=== PATIENT | male | born 1955 | race Caucasian/White ===

== ENCOUNTER → 2017-05-26 | Outpatient (CLI) | payer OTHER ==
--- NOTE | 2017-05-31 12:24 | SLEEPCENT ---
DATE OF STUDY: 05/26/2017 ORDERED BY: Kristie Gamez Diagnostic nocturnal polysomnography was performed due to concern for the obstructive sleep apnea syndrome in this patient with history of coronary artery disease and excessive somnolence. 7 hours and 39 minutes of data were reviewed. There were 348 minutes of sleep identified. Sleep latency was normal at 8 minutes. Rapid eye movement (REM) latency was delayed at 170 minutes. Sleep architecture showed fragmentation. There were 2 REM periods appreciated. Overall sleep efficiency was 76.8%. The patient's electrocardiogram (EKG) showed a sinus rhythm with an average heart rate of 72 beats per minute. Electroencephalogram (EEG) showed reasonably normal waveforms for awake and sleep. There were 212 respiratory events identified of 10 seconds in duration or greater for an apnea-hypopnea index of 36.5. The events were primarily obstructive, but 84 central events were also seen. The respiratory events were not exclusive to sleep stage nor body posture. Arousals from respiratory events occurred 10.5 times per hour and oxygen desaturations were seen into the 70s. There was also some limb activity, but arousals from limb events were few. IMPRESSION: Severe obstructive sleep apnea (G47.33), apnea-hypopnea index 36.5. RECOMMENDATION: The patient should be encouraged to return to the sleep disorder center for pressure therapy. In the interim, alcohol and sedative avoidance should be practiced and caution exercised during the operation of motor vehicles.
== END ==
LOC: M SLEEP 19:26
PROVIDERS: ATTEND Nurse Practitioner Adult Health
DX: G47.33 Obstructive sleep apnea (adult) (pediatric) (principal)

== ENCOUNTER → 2017-07-10 | Outpatient (CLI) | payer OTHER ==
--- NOTE | 2017-07-14 11:33 | SLEEPCENT ---
DATE OF PROCEDURE: 07/10/2017 REQUESTING PROVIDER: Kristie Gamez NP INTERPRETATION: Nocturnal polysomnography was performed for the titration of pressure therapy in this patient with severe obstructive sleep apnea syndrome, apnea-hypopnea index of 36.5. For testing, a ResMed Air Fit F30 full face mask of large size was used, 4 cm of water pressure was applied to the circuit and the lights were extinguished. 8 hours and 20 minutes of data were reviewed. There were 458 minutes of sleep identified. Sleep latency was prolonged at 17 minutes. Rapid eye movement (REM) latency was short at 59 minutes. Sleep architecture was good with five REM periods appreciated. Overall sleep efficiency was 93%. The patient's electrocardiogram (EKG) showed a sinus rhythm with an average heart rate of 63 beats per minute. Electroencephalogram (EEG) showed reasonably normal waveforms for awake and sleep. Persistence of respiratory events prompted an increase in continuous positive airway pressure (CPAP) pressure from 4 to the optimal pressure of +10, with which the patient slept through REM without respiratory event or oxygen desaturations. Limb activity was again seen during the titration night. Arousal index remained at the upper limits of normal at 5.4. IMPRESSION: 1. Obstructive sleep apnea syndrome (G47.33). RECOMMENDATIONS: Nightly use of pressure therapy at 10 cm of water.
== END ==
LOC: M SLEEP 19:27
PROVIDERS: ATTEND Nurse Practitioner Adult Health
DX: G47.33 Obstructive sleep apnea (adult) (pediatric) (principal)

== ENCOUNTER → 2018-11-30 | Outpatient (REF) | payer OTHER ==
[2018-11-30 14:28] LABS: COMPLEMENT C3 142 MG/DL (90-180); COMPLEMENT C4 36 MG/DL (10-40)
[2018-12-02 13:25] LABS: UPEP INTERPRETATION NO M-SPIKE NOTED; URINE VOLUME RANDOM ML
[2018-12-03 14:32] LABS: ANCA-ATYPICAL <1:20 titer (Neg:<1:20); ANTI-GLOMERULAR BASEMENT MEMB 3 units (0-20); CYTOPLASMIC NEUTROP AB ANCA-C <1:20 titer (Neg:<1:20); PERINUCLEAR AB ANCA-P <1:20 titer (Neg:<1:20)
== END ==
LOC: M LAB REF 13:10
PROVIDERS: ATTEND Internal Medicine Nephrology
DX: N18.3 Chronic kidney disease, stage 3 (moderate) (principal); R80.9 Proteinuria, unspecified

== ENCOUNTER → 2019-02-04 | Outpatient (CLI) | payer MEDICARE ==
--- NOTE | 2019-02-04 15:33 | REP ---
BILATERAL UPPER EXTREMITY DUPLEX DOPPLER ARTERIAL AND VENOUS ULTRASOUND FOR AV FISTULA MAPPING: Real-time ultrasound evaluation and duplex Doppler interrogation of bilateral upper extremity arterial and venous systems is performed. There is no evidence of deep vein thrombosis bilaterally in the upper extremities. The right basilic vein measures 9 mm at the upper humerus, 6 mm at the lower humerus, 5 mm in the antecubital region and upper forearm and 2 mm in the lower forearm and wrist. Median cubital vein measures 5 mm. Right cephalic vein measures 4 mm at the upper humerus, 6 mm at the lower humerus and antecubital region and 4 mm in the forearm, 3 mm at the wrist. Right upper extremity arterial structures demonstrate triphasic waveforms with normal flow velocities. Right axillary measures 7 mm as does the brachial artery. Right radial artery measures 3 mm and ulnar artery 5 mm. Left basilic vein measures 9 mm at the upper humerus, 5 mm at the lower humerus, 3 mm in the antecubital region and 1 mm in the upper forearm. It is not seen in the lower forearm and wrist. Median cubital vein measures 4 mm. Left cephalic vein measures 4 mm at the level of the humerus, 5 mm in the antecubital region, 4 mm in the upper forearm and 3 mm in the lower forearm and wrist. Left upper extremity arterial structures demonstrate triphasic waveforms and normal flow velocities. Left axillary artery measures 9 mm, brachial artery 7 mm and the left radial and ulnar arteries measure 3 mm. Electronically Signed by Candelario Buchanan MD 02/04/2019 05:06 P
== END ==
LOC: M RAD 13:04
PROVIDERS: ATTEND Internal Medicine Nephrology
DX: N18.4 Chronic kidney disease, stage 4 (severe) (principal)

== ENCOUNTER 2019-03-20 15:16 | Emergency (ER) | payer MEDICARE ==
[~2019-03-20] VITALS: Ht 190.5 cm; Wt 133.0 kg
[~2019-03-20 15:16] MED LIST: AMLO5TAB6; ATOR1TAB21; CALC1CAP31; CARV25TA; CYAN1000VL; ELIQ2.5T; FURO40TA2; GABA-845; HYDR-3910; IRBE300T10; ISOS30TA4; LEVE1INJ5 SC; MAGN400T PO; MULTCAP PO; NOVOINJ3; OCUVCAP2 PO; OMEG12003 PO; PANT40TA3; POTA1TAB23; SILV50CR; SPIR-10; VITA500045; VITA500T PO
[2019-03-20 16:19] LABS: BASO % 0.2 % (0.0-1.0); EOS # 0.2 10^3/uL (0.0-0.50); EOS % 2.6 % (0.0-3.0); HEMATOCRIT 34.6 % (42.0-52.0); HEMOGLOBIN 11.7 g/dl (13.5-17.5); LYMPH # 1.3 10^3/uL (1.5-4.5); LYMPH % 14.3 % (24.0-44.0); MEAN CORPUSCULAR HEMOGLOBIN 30.7 pg (27.0-33.0); MEAN CORPUSCULAR HGB CONC 33.8 g/dl (32.0-36.5); MEAN CORPUSCULAR VOLUME 90.8 fl (80.0-96.0); MONO # 0.7 10^3/uL (0.0-0.8); MONO % 7.2 % (0.0-5.0); NEUTROPHILS # 6.9 10^3/uL (1.8-7.7); NEUTROPHILS % 75.5 % (36.0-66.0); PLATELET COUNT, AUTOMATED 165 10^3/uL (150-450); RED BLOOD COUNT 3.81 10^6/uL (4.30-6.10); WHITE BLOOD COUNT 9.1 10^3/uL (4.0-10.0)
[2019-03-20 16:30] LABS: INR 1.04; PROTHROMBIN TIME 13.7 SECONDS (12.1-14.4)
[2019-03-20] MEDS ORDERED: LEVE1INJ5 SC (17:10)
[2019-03-20 17:25] VITALS: BP 174/80
== END 2019-03-20 17:43 | disposition home or self-care (01) ==
LOC: M ED 15:16
DX: I97.620 Postprocedural hemorrhage of a circulatory system organ or structure following other procedure (principal); I77.0 Arteriovenous fistula, acquired; N18.6 End stage renal disease; Z79.01 Long term (current) use of anticoagulants; Z79.4 Long term (current) use of insulin; Z79.899 Other long term (current) drug therapy

== ENCOUNTER → 2019-04-06 | Outpatient (CLI) | payer MEDICARE ==
[~2019-04-06] MED LIST changes: -AMLO5TAB6; +AMLO5TAB6 PO; -ATOR1TAB21; +ATOR1TAB21 PO; +BUPIVACAINE HCL 0.5% 10 ML VIAL As Ordered ONE; -ELIQ2.5T; +ELIQ2.5T PO; -GABA-845; +GABA-845 PO; +HEPARIN 1,000 UNITS/ML 10ML VIAL (FOR RADIOLOGY& DIALYSIS ONLY) As Ordered ONE; -HYDR-3910; +HYDR-3910 PO; +ISOVUE-300 61% 50ML VIAL (Q9967) As Ordered ONE; +LIDOCAINE 2% MDV 20 ML VIAL As Ordered ONE; -PANT40TA3; +PANT40TA3 PO; +diphenhydrAMINE INJ 50MG/ML VIAL (J1200) As Ordered ONE
== END ==
LOC: M IRPRO 10:30
PROVIDERS: ATTEND Physician Assistant
DX: N18.6 End stage renal disease (principal); Z53.9 Procedure and treatment not carried out, unspecified reason

== ENCOUNTER → 2019-05-11 | Day surgery (SDC) | payer MEDICARE ==
[~2019-05-11] VITALS: Ht 190.5 cm; Wt 129.2 kg
[~2019-05-11] MED LIST changes: +ACETAMINOPHEN 325 MG TAB PO PRN; +AcetaZOLAMIDE 500 MG ER CAP As Ordered ONE; +AcetaZOLAMIDE 500 MG ER CAP PO ONE; +BSS with VANC/TOB/EPI for EYE CASES IR ONE; -BUPIVACAINE HCL 0.5% 10 ML VIAL As Ordered ONE; +CYCLOPENTOLATE 2% OPHTH SOLN 2ML BTL OD ONE; +HEALON DUET PRO(HEALON 10MG/ML 0.55ML & HEALON ENDOCOAT 30MG/ML 0.85ML) As Ordered ONE; -HEPARIN 1,000 UNITS/ML 10ML VIAL (FOR RADIOLOGY& DIALYSIS ONLY) As Ordered ONE; -ISOVUE-300 61% 50ML VIAL (Q9967) As Ordered ONE; +LIDOCAINE 1% SDV 5 ML VIAL As Ordered ONE; -LIDOCAINE 2% MDV 20 ML VIAL As Ordered ONE; +LIDOCAINE 3.5 % 1ML OPHTH TOPICAL GEL OU ONE; +MIDAZOLAM INJ 2 MG/2 ML VIAL (J2250) As Ordered ONE; +MOXIFLOXACIN IN BSS 0.25MG/0.25ML INTRACAMERAL INJ (OR EYE ONLY)(J2280) As Ordered ONE; +OFLOXACIN 0.3 % (OCUFLOX) OPTH SOL 5ML OD ONE; +PHENYLEPHRINE 2.5% OPHTH SOL 2ML OD ONE; +PHENYLEPHRINE HCL 10 % OPHTH. SOL 5ML OD PRN; +POVIDONE-IODINE 5% OPHTH PREP SOL 30ML As Ordered ONE; +TRIAMCINOLONE PRES FR 40 MG/ML 1ML(TRIESENCE)(OR EYE ONLY)(J3300 PER 1MG) As Ordered ONE; +TRIMETHOBENZAMIDE 300 MG CAP PO PRN; +TROPICAMIDE 1% OPHTH SOLN 2ML OD ONE; -diphenhydrAMINE INJ 50MG/ML VIAL (J1200) As Ordered ONE; +fentaNYL 100 MCG/2 ML INJECTION (J3010) As Ordered ONE
[2019-05-11 11:30] VITALS: BP 176/80
--- NOTE | 2019-05-13 16:16 | RO ---
DATE OF PROCEDURE: 05/11/2019 PREPROCEDURE DIAGNOSIS: Cataract of right eye. POSTPROCEDURE DIAGNOSIS: Cataract of right eye. PROCEDURE: Femtosecond laser with phacoemulsification and intraocular lens implantation of the right eye. Intraocular lens power used was [id number], 13.5 diopter. SURGEON: Jose Juan Gomez MD DIRECTOR OF STRATEGIC PARTNERSHIPS: None. ANESTHESIA: Local IV standby. FINDINGS: Cataract of right eye. COMPLICATIONS: None. DESCRIPTION OF PROCEDURE: The patient was brought to the operating room and laid in supine position. A lid speculum was placed, and patient was brought under the femtosecond laser. After the satisfactory placement of the patient interface, primary incision, secondary incision, and arcuate incisions with lens fragmentation was done without any complication per plan. The patients interface was then removed and lid speculum removed. Patient was placed under the microscope. The eye was prepped and draped in a sterile fashion for ophthalmic surgery. Lid speculum was placed. The secondary incision was opened, and EndoCoat was injected into the anterior chamber. The temporal clear corneal incision was then opened and capsulorrhexis removed, followed by hydrodissection. This was followed by phacoemulsification of the lens within the capsular bag. Cortical material was then aspirated, and Healon was injected into the capsular bag. Intraocular lens was then placed. Excess Healon was aspirated. Wound was hydrated. The lid speculum was removed, and patient was returned to the recovery room in stable condition. ADDENDUM: After cortical clean up, Healon was placed into the anterior chamber and the capsular bag, intraocular pressure was checked, was noted to be adequate, following which multiple Optiwave Refractive Analysis (ORA) calculations were reviewed. Intraocular lens power was chosen and inserted.
== END | disposition home or self-care (01) ==
LOC: M SDC 09:11
PROVIDERS: ATTEND Ophthalmology
DX: H25.9 Unspecified age-related cataract (principal); I10 Essential (primary) hypertension; I25.2 Old myocardial infarction; I25.10 Atherosclerotic heart disease of native coronary artery without angina pectoris; G47.30 Sleep apnea, unspecified; E11.9 Type 2 diabetes mellitus without complications; K21.9 Gastro-esophageal reflux disease without esophagitis; Z95.0 Presence of cardiac pacemaker; Z95.5 Presence of coronary angioplasty implant and graft; Z79.4 Long term (current) use of insulin; Z79.899 Other long term (current) drug therapy
CPT/HCPCS: 66984; 92015; J2250; J2280; J3010; J3300; V2632

== ENCOUNTER → 2019-05-18 | Outpatient (REF) | payer MEDICARE ==
[~2019-05-18] MED LIST changes: -ACETAMINOPHEN 325 MG TAB PO PRN; -AcetaZOLAMIDE 500 MG ER CAP As Ordered ONE; -AcetaZOLAMIDE 500 MG ER CAP PO ONE; -BSS with VANC/TOB/EPI for EYE CASES IR ONE; -CYCLOPENTOLATE 2% OPHTH SOLN 2ML BTL OD ONE; -HEALON DUET PRO(HEALON 10MG/ML 0.55ML & HEALON ENDOCOAT 30MG/ML 0.85ML) As Ordered ONE; -LIDOCAINE 1% SDV 5 ML VIAL As Ordered ONE; -LIDOCAINE 3.5 % 1ML OPHTH TOPICAL GEL OU ONE; -MAGN400T PO; +MAGN400T3 PO; -MIDAZOLAM INJ 2 MG/2 ML VIAL (J2250) As Ordered ONE; -MOXIFLOXACIN IN BSS 0.25MG/0.25ML INTRACAMERAL INJ (OR EYE ONLY)(J2280) As Ordered ONE; -OFLOXACIN 0.3 % (OCUFLOX) OPTH SOL 5ML OD ONE; -PHENYLEPHRINE 2.5% OPHTH SOL 2ML OD ONE; -PHENYLEPHRINE HCL 10 % OPHTH. SOL 5ML OD PRN; -POVIDONE-IODINE 5% OPHTH PREP SOL 30ML As Ordered ONE; -TRIAMCINOLONE PRES FR 40 MG/ML 1ML(TRIESENCE)(OR EYE ONLY)(J3300 PER 1MG) As Ordered ONE; -TRIMETHOBENZAMIDE 300 MG CAP PO PRN; -TROPICAMIDE 1% OPHTH SOLN 2ML OD ONE; -fentaNYL 100 MCG/2 ML INJECTION (J3010) As Ordered ONE
--- NOTE | 2019-05-18 17:52 | REP ---
TRIPLE PHASE BONE SCAN OF HANDS AND WRISTS: Following the intravenous administration of 21.8 mCi of technetium 99m MDP, the patient's hands and wrists are imaged in the flow phase as well as the blood pool phase and delayed phase of imaging in multiple projections. Correlation made with prior plain films from [facility] 05/12/[address] 05/13/2019. There is increased blood flow and blood pooling in the region of the right first digit diffusely. Delayed images show focal increased uptake in the region of the right first distal phalanx. The findings are compatible with osteomyelitis. Otherwise, there appears to be mild arthritic uptake at the first and second metacarpophalangeal joints and at the intercarpal joints. IMPRESSION: Scintigraphic findings compatible with osteomyelitis of the right first distal phalanx. Electronically Signed by Candelario Buchanan MD 05/19/2019 12:38 P
== END ==
LOC: M RAD 09:23 → EDSTATUS 10:30 → M RAD 15:15
PROVIDERS: ATTEND Internal Medicine
DX: L08.9 Local infection of the skin and subcutaneous tissue, unspecified (principal)

== ENCOUNTER → 2020-02-14 | Outpatient (REF) | payer MEDICARE ==
[~2020-02-14] MED LIST changes: -IRBE300T10; +IRBE300T7; +VITA-243 PO; -VITA500T PO
== END ==
LOC: M LAB REF 16:16
PROVIDERS: ATTEND Podiatrist
DX: M79.671 Pain in right foot (principal)

== ENCOUNTER 2020-02-22 09:17 | Inpatient (IN) | payer MEDICARE ==
[~2020-02-22] VITALS: Ht 190.5 cm; Wt 127.0 kg
[~2020-02-22 09:17] MED LIST changes: -NOVOINJ3; +NOVOINJ3 SC
[2020-02-22] MEDS ORDERED: AMOX500C PO (09:31)
[2020-02-22] MEDS ORDERED: POTA1TAB23 PO (09:31)
[2020-02-22] MEDS ORDERED: K-TA10TA2 PO (09:31)
[2020-02-22] MEDS ORDERED: ASPI81TA33 PO (09:31)
[2020-02-22] MEDS ORDERED: FAMO1TAB11 PO (09:31)
[2020-02-22] MEDS ORDERED: NITR0.4D6 TOP (09:31)
[2020-02-22] MEDS ORDERED: CALCITRIOL PO (09:31)
[2020-02-22] MEDS ORDERED: SILVER TOP (09:31)
[2020-02-22 10:21] LABS: BASO % 0.5 % (0.0-1.0); EOS # 0.5 10^3/uL (0.0-0.5); EOS % 5.2 % (0.0-3.0); HEMATOCRIT 30.5 % (42.0-52.0); HEMOGLOBIN 10.2 g/dl (13.5-17.5); LYMPH # 0.9 10^3/uL (1.5-5.0); LYMPH % 9.9 % (24.0-44.0); MEAN CORPUSCULAR HEMOGLOBIN 29.3 pg (27.0-33.0); MEAN CORPUSCULAR HGB CONC 33.4 g/dl (32.0-36.5); MEAN CORPUSCULAR VOLUME 87.6 fl (80.0-96.0); MONO % 11.2 % (0.0-5.0); NEUTROPHILS # 6.4 10^3/uL (1.5-8.5); NEUTROPHILS % 72.4 % (36.0-66.0); PLATELET COUNT, AUTOMATED 175 10^3/uL (150-450); RED BLOOD COUNT 3.48 10^6/uL (4.30-6.10); WHITE BLOOD COUNT 8.9 10^3/uL (4.0-10.0)
[2020-02-22 10:32] LABS: INR 1.25; PROTHROMBIN TIME 15.4 SECONDS (11.8-14.0)
[2020-02-22 10:33] LABS: PARTIAL THROMBOPLASTIN TIME 34.9 SECONDS (25.0-38.4)
[2020-02-22 10:35] LABS: D-DIMER QUANT 1407.23 ng/ml (<500)
[2020-02-22 10:46] LABS: CALCIUM LEVEL 8.5 MG/DL (8.8-10.2); CREATININE FOR GFR 3.54 MG/DL (0.70-1.30); GLOMERULAR FILTRATION RATE 18.6 (>49); POTASSIUM SERUM 3.4 MEQ/L (3.5-5.1)
[2020-02-22 10:57] LABS: CK-MB VALUE MASS 1.9 NG/ML (<3.6); MB/CK RELATIVE INDEX 0.68 (< OR =4); TROPONIN I 0.03 NG/ML (< 0.10)
--- NOTE | 2020-02-22 11:02 | REP ---
CHEST, SINGLE VIEW: Single view of the chest is performed. There is no evidence of acute infiltrate or pulmonary edema. There is mild cardiomegaly. The mediastinal silhouette is unremarkable. There is a right pacemaker. IMPRESSION: Cardiomegaly without evidence of acute pulmonary disease. Electronically Signed by Candelario Buchanan MD 02/22/2020 11:11 A
[2020-02-22] MEDS ORDERED: HEPARIN DRIP 25,000 UNITS in IV 1 EA IV SCH (13:07)
[2020-02-22] MEDS ORDERED: HEPARIN SOD (PORCINE) 5000UNITS/ML VIAL (J1644 PER 1000UNITS) IV ONE (13:15)
[2020-02-22] MEDS ORDERED: ROCA0.5C PO (13:43)
[2020-02-22] MEDS ORDERED: CLOP75TA2 PO (13:43)
[2020-02-22] MEDS ORDERED: LEVE1INJ5 SC (13:43)
[2020-02-22] MEDS ORDERED: SILV50CR TOP (13:43)
[2020-02-22] MEDS ORDERED: POTASSIUM CHLORIDE 10 MEQ SR TABLET PO ONE (15:15)
--- NOTE | 2020-02-22 15:41 | HPEPDOC ---
[facility] Medical History & Physical Date of Admission Feb 22, 2020 Date of Service: Feb 22, 2020 Attending Physician: SEGUNDO BOSS MD History and Physical CHIEF COMPLAINT: Shortness of breath HISTORY OF PRESENT ILLNESS: 64-year-old male with past medical history of coronary artery disease, CT, status post replacement, congestive heart failure, DVT, chronic kidney disease, hypertension and diabetes mellitus presents from home with fatigue and shortness of breath. Patient reports that he has been feeling unwell for the past 3-4 days. He could feel that his kidneys were acting up, was experiencing fatigue, malaise and shortness of breath. He has no other complaints at this time, appears comfortable in bed. In the ED, he is found to have lower extremity DVT despite being on Eliquis in the outpatient setting. Of note, patient is taking 2.5 mg twice a day as opposed to 5 mg twice a day he sh ould be taking. Denies any pain in his lower extremities. 10 point review of system is negative except for above PAST MEDICAL HISTORY: 1. Congestive heart failure. 2. , Coronary artery disease. 3. , Chronic kidney disease. 4. Myocardial function. 5. Hypertension 6. Diabetes mellitus. 7. DVT. 8. Hyperlipidemia PAST SURGICAL HISTORY: 1. , Back surgery. SOCIAL HISTORY: Never smoker. Denies alcohol use. Denies drug use FAMILY HISTORY: Positive for heart disease ALLERGIES: Please see below. HOME MEDICATIONS: Please see below. PHYSICAL EXAMINATION: VITAL SIGNS: Please see below. GENERAL: No distress HEENT: Normocephalic, atraumatic, moist mucous membranes NECK: Supple CARDIOVASCULAR EXAMINATION: S1, S2 RESPIRATORY EXAMINATION: Clear to auscultation, no wheezing ABDOMINAL EXAMINATION: Soft, nontender, nondistended, positive bowel sounds EXTREMITIES: Trace lower extremity edema, right upper extremity AV fistula SKIN: No rash NEUROLOGICAL EXAMINATION: Alert and oriented 3, no focal deficits PSYCHIATRIC EXAMINATION: Calm and cooperative LABORATORY DATA: See below. IMAGING: Lower extremity Doppler showing DVT MICROBIOLOGY: Please see below. ASSESSMENT: 64-year-old male with multiple medical comorbidities, is being admitted for acute on chronic kidney failure and DVT. PLAN: 1. Acute on chronic renal failure. Gentle IV hydration, will monitor. No need for extensive workup at this time 2. DVT. Difficult to say treatment failure as patient was receiving an adequate dose, will increase Eliquis to 10 mg twice a day for 7 days as a loading, followed by 5 mg twice a day. 3. Congestive heart failure. No previous echo for comparison, appears euvolemic at this time. 4. Diabetes mellitus. Levemir 20 units twice a day, sliding scale insulin with meals and at bedtime 5. Coronary artery disease. History of CT, status post stents, continue optimal medical management with Plavix, statin. 6. Hypertension. Continue Norvasc and hydralazine DVT prophylaxis: Eliquis GI prophylaxis: Pepcid Vital Signs Vital Signs Date Time Temp Pulse Resp B/P (MAP) Pulse Ox O2 Delivery O2 Flow Rate FiO2 02/22/20 14:45 69 18 136/59 (84) 99 Room Air 02/22/20 09:17 96.8 Laboratory Data Labs 24H Laboratory Tests 2 02/22/20 09:45: Immature Granulocyte % (Auto) 0.8, Neutrophils (%) (Auto) 72.4H, Lymphocytes (%) (Auto) 9.9L, Monocytes (%) (Auto) 11.2H, Eosinophils (%) (Auto) 5.2H, Basophils (%) (Auto) 0.5, Neutrophils # (Auto) 6.4, Lymphocytes # (Auto) 0.9L, Monocytes # (Auto) 1.0H, Eosinophils # (Auto) 0.5, Basophils # (Auto) 0.0, Nucleated Red Blood Cells % (auto) 0.0, Prothrombin Time 15.4H, Prothromb Time International Ratio 1.25, Activated Partial Thromboplast Time 34.9, D-Dimer, Quantitative 1407.23H, Urine Color YELLOW, Urine Appearance CLEAR, Urine pH 5.0, Urine Specific [place] 1.009, Urine Protein 2+H, Urine Glucose (UA) NEGATIVE, Urine Ketones NEGATIVE, Urine Blood NEGATIVE, Urine Nitrite NEGATIVE, Urine Bilirubin NEGATIVE, Urine Urobilinogen 0.2, Urine Leukocyte Esterase NEGATIVE, Urine WBC (Auto) 1, Urine RBC (Auto) 0, Urine Hyaline Casts (Auto) 0, Urine Bacteria (Auto) NEGATIVE, Urine Squamous Epithelial Cells 0, Urine Calcium Oxalate Cryst (Auto) SMALL, Urine Mucus (Auto) SMALL, Urine Sperm (Auto) , Anion Gap 8, Glomerular Filtration Rate 18.6L, Calcium Level 8.5L, Total Creatine Kinase 278, Creatine Kinase MB 1.9, Creatine Kinase MB Relative Index 0.68, Troponin I 0.03, CV-Nem-I-Type Natriuretic Peptide 3388H, Coronavirus (COVID-19)(PCR) NEGATIVE 02/22/20 09:50: Lactic Acid Level 1.2 CBC/BMP Laboratory Tests 02/22/20 09:45 Microbiology Microbiology 02/22/20 Blood Culture, Received Pending 02/22/20 - Final, Complete 02/22/20 Blood Culture, Received Pending Home Medications Scheduled Amlodipine Besylate (Amlodipine Besylate) 5 Mg Tablet, 5 MG PO DAILY Apixaban (Eliquis) 2.5 Mg Tablet, 2.5 MG PO BID Aspirin (Aspirin EC) 81 Mg Tablet.dr, 81 MG PO DAILY Atorvastatin Calcium (Atorvastatin Calcium) 20 Mg Tablet, 20 MG PO DAILY C,E,Zinc,Copper 24/Om3/Lut/Carol (Ocuvite Adult 50 Plus Softgel) 1 Each Capsule, 1 CAP PO DAILY Calcitriol (Rocaltrol) 0.5 Mcg Capsule, 0.5 MCG PO DAILY Clopidogrel Bisulfate (Clopidogrel) 75 Mg Tablet, 75 MG PO DAILY Famotidine (Famotidine) 20 Mg Tablet, 20 MG PO DAILY Gabapentin (Gabapentin) 400 Mg Capsule, 400 MG PO TID Hydralazine HCl (Hydralazine HCl) 25 Mg Tablet, 25 MG PO TID Insulin Aspart (Novolog Flexpen) 100 Unit/1 Ml Insuln.pen, 1 DOSE SC AC PER SLIDING SCALE Insulin Detemir (Levemir Flextouch) 100 Unit/1 Ml Insuln.pen, 30 UNITS SC QAM Insulin Detemir (Levemir Flextouch) 100 Unit/1 Ml Insuln.pen, 40 UNIT SC QHS Nitroglycerin (Nitroglycerin Patch) 0.4 Mg/Hr Patch.td24, 0.4 MG TOP DAILY APPLIED TO CHEST Potassium Chloride (K-Tab ER) 10 Meq Tablet.er, 10 MEQ PO DAILY Scheduled PRN Silver Sulfadiazine (Ssd) 50 Gm Cream..g., 1 APLCT TOP BID PRN for FOOT WOUNDS Allergies Coded Allergies: No Known Allergies (Unverified , 05/03/19) A-FIB/CHADSVASC A-FIB History Current/History of A-Fib/PAF?: No SEGUNDO BOSS MD Feb 22, 2020 15:40
[2020-02-22] MEDS ORDERED: DEXTROSE 50% 50 ML SYRINGE IV PRN (15:45)
[2020-02-22] MEDS ORDERED: GLUCOSE 4GM CHEW TABLET PO PRN (15:45)
[2020-02-22] MEDS ORDERED: GLUCAGON INJ 1MG VIAL SC PRN (15:45)
[2020-02-22] MEDS: GABAPENTIN 400 MG CAP PO SCH ×2 (16:00→20:39)
[2020-02-22] MEDS: NS 1,000 ML IV SCH (16:02)
[2020-02-22] MEDS: **hydrALAZINE HCL** 25 MG TAB PO SCH ×2 (16:02→20:40)
--- NOTE | 2020-02-22 16:44 | ECGEPIP ---
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
[2020-02-22] MEDS: HumaLOG INSULIN (NovoLOG) PER UNIT SC SCH ×2 (17:59→20:34)
[2020-02-22] MEDS: APIXABAN 5 MG TAB (ELIQUIS) PO SCH (20:39)
[2020-02-22] MEDS: LEVEMIR (INSULIN DETEMIR) 1 UNITS/0.01ML SC SCH (20:40)
[2020-02-22 22:00] VITALS: BP 163/72
--- NOTE | 2020-02-23 04:20 | REP ---
REASON: Pain and swelling. Multiple ultrasonographic images of the deep venous structures of the left thigh were obtained from the level of the common femoral vein to the popliteal vein with Doppler interrogation techniques, color flow Doppler imaging, and compressive techniques. There is abnormal echogenic material seen in the distal aspect of the superficial femoral vein extending into the popliteal vein. This vessel does not coapt. There is a decreased response to augmentation at that level. IMPRESSION: Positive deep vein thrombosis as described above. Electronically Signed by Galo Riggins DO 02/23/2020 08:18 A
[2020-02-23] MEDS: NS 1,000 ML IV SCH (05:33)
[2020-02-23 06:00] VITALS: BP 153/66
[2020-02-23 06:13] LABS: MEAN CORPUSCULAR HEMOGLOBIN 29.7 pg (27.0-33.0); MEAN CORPUSCULAR HGB CONC 33.3 g/dl (32.0-36.5); PLATELET COUNT, AUTOMATED 141 10^3/uL (150-450); RED BLOOD COUNT 3.37 10^6/uL (4.30-6.10); WHITE BLOOD COUNT 8.1 10^3/uL (4.0-10.0)
[2020-02-23 06:50] LABS: ALBUMIN 2.9 GM/DL (3.2-5.2); BILIRUBIN,TOTAL 0.7 MG/DL (0.2-1.0); CALCIUM LEVEL 8.1 MG/DL (8.8-10.2); CREATININE FOR GFR 3.17 MG/DL (0.70-1.30); GLOMERULAR FILTRATION RATE 21.1 (>49); MAGNESIUM LEVEL 2.3 MG/DL (1.8-2.4); POTASSIUM SERUM 3.8 MEQ/L (3.5-5.1); TOTAL PROTEIN 5.7 GM/DL (6.4-8.2)
[2020-02-23] MEDS: HumaLOG INSULIN (NovoLOG) PER UNIT SC SCH ×4 (09:03→20:48)
[2020-02-23] MEDS: ATORVASTATIN 20 MG TAB PO SCH (09:03)
[2020-02-23] MEDS: LEVEMIR (INSULIN DETEMIR) 1 UNITS/0.01ML SC SCH ×2 (09:03→21:04)
[2020-02-23] MEDS: OCUVITE 1 TAB PO SCH (09:04)
[2020-02-23] MEDS: CALCITRIOL 0.25 MCG CAP (S0169) PO SCH (09:04)
[2020-02-23] MEDS: FAMOTIDINE 20 MG TAB PO SCH (09:04)
[2020-02-23] MEDS: GABAPENTIN 400 MG CAP PO SCH ×3 (09:04→21:04)
[2020-02-23] MEDS: CLOPIDOGREL 75 MG TAB PO SCH (09:04)
[2020-02-23] MEDS: POTASSIUM CHLORIDE 10 MEQ SR TABLET PO SCH (09:04)
[2020-02-23] MEDS: APIXABAN 5 MG TAB (ELIQUIS) PO SCH ×2 (09:04→21:04)
[2020-02-23] MEDS: amLODIPine 5 MG TAB PO SCH (09:05)
[2020-02-23] MEDS: **hydrALAZINE HCL** 25 MG TAB PO SCH ×3 (09:05→21:03)
--- NOTE | 2020-02-23 13:14 | IPNPDOC ---
Text Note Date of Service The patient was seen on 02/23/20. NOTE SUBJECTIVE: 64-year-old male presenting from home with fatigue and shortness of breath who was admitted with acute on chronic renal failure and persistent left lower extremity DVT. No acute events overnight, patient denies any SOB, malaise, fatigue, chest pain, abdominal pain, nausea, vomiting. OBJECTIVE: PHYSICAL EXAM: Vitals: (see below) General: No acute distress, laying comfortably in bed. HEENT: Normocephalic, atraumatic. EOMI. No scleral icterus. Moist mucous mem branes. No pharyngeal erythema or uvular deviation. Neck: No JVD, lymphadenopathy, or thyromegaly. Cardiac: RRR, Normal S1 and S2, No murmurs, gallops, rubs. Pulm: Clear to auscultation b/l. Symmetric thorax. No wheezing, crackles, rhonchi Abd: Bowel Sounds present. Abdomen is soft, non-tender, non-distended. Ext: 2+ pitting edema in bilateral lower extremities Neuro: No focal neuro deficits LABORATORY DATA, MICROBIOLOGY: Please see below. IMAGING STUDIES: ASSESSMENT AND PLAN: #. Acute on chronic renal failure. Creatinine improved overnight with mostly PO hydration, baseline creatinine of 2.8, follows with Dr. Shafer outpatient. -UA negative, patient appears clinically volume overloaded on physical exam and doesn't seem to have a history to support dehydration, no prior CXR for comparison but there does appear to be some cephalization and BNP was elevated. No prior echo for comparison at this time. Will order echocardiogram for further help with volume status. Otherwise will hold fluids for the time being as he is not far off from his baseline kidney function. #. DVT. Continue Eliquis 10 mg BID until 02/29/2020, then transition to 5mg PO BID. #. Congestive heart failure. No prior echo, but BNP is elevated and peripheral edema. Will order echo. #. Diabetes mellitus. Levemir 20 units twice a day, sliding scale insulin with meals and at bedtime #. Coronary artery disease. History of OR, status post stents, continue optimal medical management with Plavix, statin. Follows with Dr. hSelton and has been on DAPT with ASA/plavix since his most recent 06/2019 stent placement following brelinta treatment failure 2/[address] Hartman who agrees with decision to stop Aspirin as 3 AC agents increase his mortality risk significantly. Will continue with plavix, statin, and eliquis for DVT tx. #. Hypertension. Continue Norvasc and hydralazine DVT prophylaxis: Eliquis GI prophylaxis: Pepcid VS,Fishbone, I+O VS, Fishbone, I+O Laboratory Tests 02/23/20 05:48 Vital Signs Date Time Temp Pulse Resp B/P (MAP) Pulse Ox O2 Delivery O2 Flow Rate FiO2 02/23/20 09:05 150/71 02/23/20 09:05 74 02/23/20 06:00 97.5 18 98 Room Air I&O- Last 24 Hours up to 6 AM 02/23/20 06:00 Intake Total 1040 ml Output Total 2200 ml Balance -1160 ml GME ATTESTATION GME ATTESTATION My faculty preceptor for this patient encounter was physically present during the encounter and was fully available. All aspects of the patient interview, examination, medical decision making process, and medical care plan development were reviewed and approved by the faculty preceptor. The faculty preceptor is aware and concurs with the plan as stated in the body of this note and will attest to such by his/her cosignature. NAKIA SMILEY DO Feb 23, 2020 13:14
[2020-02-23 14:00] VITALS: BP 148/71
[2020-02-23] MEDS: DOCUSATE SODIUM 100 MG CAP PO PRN (17:27)
--- NOTE | 2020-02-23 20:17 | ECHO ---
DATE OF PROCEDURE: 02/23/2020 REFERRING PHYSICIAN: Dr. Caesar Van INDICATION: Edema. HEIGHT: 190 cm WEIGHT: 127 kg 2D MEASUREMENTS: Aortic root: 3.6 cm Left atrium: 4.6 cm Aortic annulus: 2.1 cm Ventricular septum: 1.49 cm Posterior wall: 1.51 cm Left ventricle diastole: 5.8 - 6.7 cm Inferior vena cava: 2.7 cm with marked reduction of respiratory variation. DOPPLER MEASUREMENTS: No aortic stenosis. No aortic regurgitation. Aortic valve velocity: 146 cm/s LVOT velocity: 97.3 cm/s LVOT VTI: 19.8 cm Mild mitral regurgitation. No mitral stenosis. Mitral E velocity: 105 cm/s Mitral A velocity: 52.3 cm/s Mitral deceleration time: 173 ms Very mild tricuspid regurgitation. Estimated right ventricle systolic pressure: At least 52 mmHg assuming a right atrial pressure of at least 20 mmHg. No pulmonic regurgitation. Pulmonary acceleration time: 102 ms MITRAL ANNULAR TISSUE DOPPLER: E prime septal: 3.4 cm/s E prime lateral: 4.4 cm/s DESCRIPTION: Rhythm was sinus. This was a moderately technically difficult echocardiogram, especially very difficult for endocardial visualization and difficult imaging from the parasternal short axis, the apical window and the subcostal window. No pericardial effusion. CONCLUSIONS: 1. Moderate left ventricle diltation with remodeling and shape deformation. Moderate mixed eccentric/concentric left ventricle hypertrophy. Severe reduction in overall LV systolic function. Left ventricular ejection fraction (LVEF) 30% by visual estimate. Sigmoid-shaped ventricular septum. The left ventricle apex and apical cap segment were probably akinetic. The inferior wall from base to apex was probably akinetic. The inferoseptal region from base to apex was probably akinetic. The basal and mid anteroseptal segments were probably moderately hypokinetic. The basal anterior segment was probably hypokinetic. The mid anterior segment was probably akinetic. The apical anterior and apical inferior segments were technically difficult to visualize but suspected to be akinetic. The basal anterolateral segment was normokinetic. The mid anterolateral segment was technically difficult to assess wall thickening. No left ventricle thrombus. Restrictive diastolic filling pattern (grade 3 or grade 4). 2. Normal right ventricle size and systolic function. 3. Suggestive of moderate elevation of estimated right ventricle systolic pressure (at least 52 mmHg). 4. Inferior vena cava plethora. Marked reduction of respiratory variation inferior vena cava consistent with elevated central venous pressure of at least 20 mmHg. 5. Mild left atrial dilatation. 6. Moderate aortic valve sclerosis of a 3-cusp aortic valve. No aortic regurgitation or stenosis. 7. Mild mitral annular calcification. Mild mitral regurgitation. 8. Presence of an implantable cardioverter defibrillator (ICD) lead coursing towards the right ventricle apex position.
[2020-02-23 22:00] VITALS: BP 158/79
[2020-02-23] MEDS ORDERED: CALCIUM CARBONATE 500 MG CHEW U/D PO PRN (22:45)
[2020-02-24 06:00] VITALS: BP 145/75
[2020-02-24] MEDS: GABAPENTIN 400 MG CAP PO SCH (08:17)
[2020-02-24] MEDS: APIXABAN 5 MG TAB (ELIQUIS) PO SCH (08:17)
[2020-02-24] MEDS: POTASSIUM CHLORIDE 10 MEQ SR TABLET PO SCH (08:17)
[2020-02-24] MEDS: OCUVITE 1 TAB PO SCH (08:17)
[2020-02-24] MEDS: CLOPIDOGREL 75 MG TAB PO SCH (08:17)
[2020-02-24] MEDS: HumaLOG INSULIN (NovoLOG) PER UNIT SC SCH ×2 (08:17→12:00)
[2020-02-24] MEDS: CALCITRIOL 0.25 MCG CAP (S0169) PO SCH (08:18)
[2020-02-24] MEDS: ATORVASTATIN 20 MG TAB PO SCH (08:18)
[2020-02-24] MEDS: FAMOTIDINE 20 MG TAB PO SCH (08:18)
[2020-02-24 08:20] VITALS: BP 144/68
[2020-02-24] MEDS: amLODIPine 5 MG TAB PO SCH (08:20)
[2020-02-24] MEDS: **hydrALAZINE HCL** 25 MG TAB PO SCH (08:20)
[2020-02-24] MEDS: LEVEMIR (INSULIN DETEMIR) 1 UNITS/0.01ML SC SCH (08:20)
[2020-02-24] MEDS: DOCUSATE SODIUM 100 MG CAP PO PRN (08:29)
[2020-02-24 08:38] LABS: HEMATOCRIT 32.2 % (42.0-52.0); HEMOGLOBIN 11.1 g/dl (13.5-17.5); MEAN CORPUSCULAR HEMOGLOBIN 30.3 pg (27.0-33.0); MEAN CORPUSCULAR HGB CONC 34.5 g/dl (32.0-36.5); PLATELET COUNT, AUTOMATED 186 10^3/uL (150-450); RED BLOOD COUNT 3.66 10^6/uL (4.30-6.10); WHITE BLOOD COUNT 9.5 10^3/uL (4.0-10.0)
[2020-02-24 09:05] LABS: CALCIUM LEVEL 8.9 MG/DL (8.8-10.2); CREATININE FOR GFR 3.13 MG/DL (0.70-1.30); GLOMERULAR FILTRATION RATE 21.4 (>49); POTASSIUM SERUM 4.2 MEQ/L (3.5-5.1)
[2020-02-24] MEDS ORDERED: ELIQ5TAB PO (11:29)
--- NOTE | 2020-02-25 20:09 | DS.PDOC ---
Discharge Summary General Date of Admission Feb 22, 2020 at 14:49 Date of Discharge 02/24/2020 Primary Care Physician: Mejia Packer MD Attending Physician: SEGUNDO BOSS MD Discharge Summary PROCEDURES PERFORMED DURING STAY: [None]. ADMITTING/DISCHARGE DIAGNOSES: Acute On Chronic Renal Failure RLE DVT CAD CHF hyperlipidemia Hypertension COMPLICATIONS/CHIEF COMPLAINT: HISTORY OF PRESENT ILLNESS/HOSPITAL COURSE: . DISCHARGE MEDICATIONS: Please see below. ALLERGIES: Please see below. Vitals: (see below) General: No acute distress, laying comfortably in bed. HEENT: Normocephalic, atraumatic. EOMI. No scleral icterus. Moist mucous membranes. No pharyngeal erythema or uvular deviation. Neck: No JVD, lymphadenopathy, or thyromegaly. Cardiac: RRR, Normal S1 and S2, No murmurs, gallops, rubs. Pulm: Clear to auscultation b/l. Symmetric thorax. No wheezing, crackles, rho nchi Abd: Bowel Sounds present. Abdomen is soft, non-tender, non-distended. No guarding, rebound tenderness, or rigidity. No hepatosplenomegaly. No masses or eccymosis. Ext: No edema or cyanosis Skin: No skin changes Neuro: No focal neuro deficits Psych: Appropriate affect LABORATORY DATA: Please see below. IMAGING: PROGNOSIS: stable ACTIVITY: [As tolerated]. DIET: As tolerated DISCHARGE PLAN: DISPOSITION: . DISCHARGE INSTRUCTIONS: 1. Please return to hospital if symptoms worsen 2. His follow-up with Dr. Shafer next week for recheck of kidney function. ITEMS TO FOLLOWUP ON ON OUTPATIENT: 1. Recheck kidney function by next Thursday at the latest DISCHARGE CONDITION: [Stable]. TIME SPENT ON DISCHARGE: 35 minutes Vital Signs/I&Os Vital Signs Date Time Temp Pulse Resp B/P (MAP) Pulse Ox O2 Delivery O2 Flow Rate FiO2 02/24/20 08:20 144/68 02/24/20 08:20 61 02/24/20 06:00 97.3 19 98 Room Air I&O- Last 24 Hours up to 6 AM 02/25/20 06:00 Intake Total 1200 ml Output Total 700 ml Balance 500 ml Microbiology Microbiology 02/22/20 Blood Culture - Preliminary, Resulted No Growth after 72 hours. All specime... 02/22/20 - Final, Complete 02/22/20 Blood Culture - Preliminary, Resulted No Growth after 72 hours. All specime... Discharge Medications Scheduled Amlodipine Besylate (Amlodipine Besylate) 5 Mg Tablet, 5 MG PO DAILY, (Reported) Apixaban (Eliquis) 5 Mg Tablet, 1 TAB PO BID Take 2 tabs twice daily for 5 days followed by 1 tab twice daily indefinitely. Atorvastatin Calcium (Atorvastatin Calcium) 20 Mg Tablet, 20 MG PO DAILY, (Reported) C,E,Zinc,Copper 24/Om3/Lut/Carol (Ocuvite Adult 50 Plus Softgel) 1 Each Capsule, 1 CAP PO DAILY, (Reported) Calcitriol (Rocaltrol) 0.5 Mcg Capsule, 0.5 MCG PO DAILY, (Reported) Clopidogrel Bisulfate (Clopidogrel) 75 Mg Tablet, 75 MG PO DAILY, (Reported) Famotidine (Famotidine) 20 Mg Tablet, 20 MG PO DAILY, (Reported) Gabapentin (Gabapentin) 400 Mg Capsule, 400 MG PO TID, (Reported) Hydralazine HCl (Hydralazine HCl) 25 Mg Tablet, 25 MG PO TID, (Reported) Insulin Aspart (Novolog Flexpen) 100 Unit/1 Ml Insuln.pen, 1 DOSE SC AC, (Reported) PER SLIDING SCALE Insulin Detemir (Levemir Flextouch) 100 Unit/1 Ml Insuln.pen, 30 UNITS SC QAM, (Reported) Insulin Detemir (Levemir Flextouch) 100 Unit/1 Ml Insuln.pen, 40 UNIT SC QHS, (Reported) Nitroglycerin (Nitroglycerin Patch) 0.4 Mg/Hr Patch.td24, 0.4 MG TOP DAILY, (Reported) APPLIED TO CHEST Potassium Chloride (K-Tab ER) 10 Meq Tablet.er, 10 MEQ PO DAILY, (Reported) Scheduled PRN Silver Sulfadiazine (Ssd) 50 Gm Cream..g., 1 APLCT TOP BID PRN for FOOT WOUNDS, (Reported) Allergies Coded Allergies: No Known Allergies (Unverified , 05/03/19) GME ATTESTATION GME ATTESTATION My faculty preceptor for this patient encounter was physically present during the encounter and was fully available. All aspects of the patient interview, examination, medical decision making process, and medical care plan development were reviewed and approved by the faculty preceptor. The faculty preceptor is aware and concurs with the plan as stated in the body of this note and will attest to such by his/her cosignature. NAKIA SMILEY DO February 25, 2020 20:09
== END 2020-02-24 12:51 | disposition home or self-care (01) | DRG 300 ==
LOC: M ED 09:17 → M ED INP 14:49 → ENRESERV 15:08 → M MSPAV 15:51
PROVIDERS: ADMIT Internal Medicine; ATTEND Internal Medicine
DX: I82.412 Acute embolism and thrombosis of left femoral vein (principal); N17.9 Acute kidney failure, unspecified; I13.0 Hypertensive heart and chronic kidney disease with heart failure and stage 1 through stage 4 chronic kidney disease, or unspecified chronic kidney disease; I50.9 Heart failure, unspecified; E78.5 Hyperlipidemia, unspecified; I25.10 Atherosclerotic heart disease of native coronary artery without angina pectoris; Z79.899 Other long term (current) drug therapy; I25.2 Old myocardial infarction; E11.9 Type 2 diabetes mellitus without complications; Z79.82 Long term (current) use of aspirin; Z79.4 Long term (current) use of insulin; N18.9 Chronic kidney disease, unspecified

== ENCOUNTER → 2020-03-30 | Outpatient (CLI) | payer MEDICARE ==
[~2020-03-30] MED LIST changes: +AMOX500C PO; +ASPI81TA33 PO; +CALCITRIOL PO; +CLOP75TA2 PO; +ELIQ5TAB PO; +FAMO1TAB11 PO; +ISOVUE-300 61% 50ML VIAL As Ordered ONE; +K-TA10TA2 PO; +LIDOCAINE 1% MDV 20ML VIAL As Ordered ONE; +MIDAZOLAM INJ 2MG/2ML VIAL (J2250 PER 1MG) As Ordered ONE; +NITR0.4D6 TOP; +POTA1TAB23 PO; +ROCA0.5C PO; +SILV50CR TOP; +SILVER TOP; +fentaNYL 100 MCG/2 ML INJECTION (J3010) As Ordered ONE
[2020-03-30 16:20] VITALS: BP 187/82
--- NOTE | 2020-03-30 16:22 | ROOPDOC ---
[facility] Report Of Operation Report of Operation DATE OF PROCEDURE: 03/30/20 PREPROCEDURE DIAGNOSES: End-stage for renal insufficiency likely requiring dialysis soon and weak thrill right Sergio fistula POSTPROCEDURE DIAGNOSES: Same PROCEDURE: 1. Ultrasound-guided access right Sergio fistula 2. Right upper extremity fistulogram 3. Coiling of cephalic vein branch right upper extremity with 5 x 3 tornado coil 4. Completion venogram SURGEON: Leidy Hay MD ANESTHESIA: Local anesthesia 2cc lidocaine. Moderate intravenous conscious sedation was administered by Dr. Hay. The patient was independently monitored by registered nurse assigned to the Department of radiology using automated blood pressure, EKG, and pulse oximetry. A detailed sedation record is permanently started in the hospital information system. The following is a brief sedation record: Start time 15:12, stop time 15:39, Versed 0.5 mg IV, fentanyl 25 g IV. CONTRAST: 23 mL Isovue-300 INDICATION FOR PROCEDURE: This is a very pleasant 64-year-old gentleman with stage IV renal insufficiency not yet on dialysis but likely to need dialysis in the imminent future. His Sergio fistula has a slightly weak thrill and we were asked to evaluate it in case he needs dialysis soon. In clinic, the patient was noted to have a large retrograde branch stealing blood from the fistula on ultrasound. We discussed the risks benefits and alternatives to a fistulogram potential intervention he was agreeable to proceed. Informed consent was obtained. INTERPRETATION: 1. AV anastomosis in the cephalic vein are widely patent near the anastomosis on ultrasound. 2. The cephalic vein is widely patent throughout the forearm and branches in the proximal forearm near the antecubital crease and has good runoff through the upper arm. 3. There is a large retrograde branch 10 cm from the AV anastomosis that was successfully coiled improving the thrill in the fistula. REPORT OF OPERATION: The patient was brought into graphic suite in stable co ndition. His right upper extremity was prepped and draped in a sterile fashion. A timeout was performed. Local anesthesia was a public safety police to the skin and subcutaneous tissue over the cephalic vein. Ultrasound was used to examine the AV anastomosis and the vein proximal to this. The AV anastomosis was widely patent. There is a bit of a loop where the cephalic vein was tunneled from the distal hand down around to the more proximal radial artery, but this is all widely patent with good flow. We access the cephalic vein with a microneedle. Wire was passed through this access. The needle was removed and a 4 Faroese sheath was placed. We flushed sheath with saline and of the right upper extremity fistulogram was performed. Please interpretation above. We then utiliz ed and Omni Flush catheter to gain retrograde access into a branch of the cephalic vein. The wire was advanced carefully and the catheter was removed and exchanged for a glide cath. Once the Gleich Was within the branch we confirmed placement with a quick venogram. We endplate a 5 x 3 tornado coil. Following this, there was widely patent inflow through the fistula with no flow limi tation. There is improvement in the thrill. The branch was well occluded. We then placed local anesthesia around the sheath and a Prolene suture was placed in a [id number] pattern around the exit site of the sheath. This was secured at the sheath was removed and sterile dressings were applied. Pressure was held for 5 minutes and the patient was taken to recovery in stable cond ition. He tolerated the procedure and the sedation well. ESTIMATED BLOOD LOSS: Approximately 3 mL. COMPLICATIONS: None. PLAN: I'm hopeful the patient's fistula will be ready for use if and when he needs dialysis. We would be happy to ani it on the skin before access when the time comes. He can resume his home diet medications. No strenuous exercise or lifting more than 5 pounds for 24 hours in the right upper extremity. Okay to remove the dressings tomorrow and shower as normal. [facility] in the care of this patient. LEIDY HAY MD Mar 30, 2020 16:22
== END ==
LOC: M IRPRO 12:51
PROVIDERS: ATTEND Surgery Vascular Surgery
DX: T82.590A Other mechanical complication of surgically created arteriovenous fistula, initial encounter (principal); N18.6 End stage renal disease; X58.XXXA Exposure to other specified factors, initial encounter

== ENCOUNTER → 2021-05-09 | Outpatient (REF) | payer MEDICARE ==
[~2021-05-09] MED LIST changes: +AMLO1TAB24 PO; -AMLO5TAB6 PO; +GABA-283 PO; -GABA-845 PO; +ISOS1TAB35; -ISOS30TA4; -ISOVUE-300 61% 50ML VIAL As Ordered ONE; -LIDOCAINE 1% MDV 20ML VIAL As Ordered ONE; -MIDAZOLAM INJ 2MG/2ML VIAL (J2250 PER 1MG) As Ordered ONE; +PANT40TA29 PO; -PANT40TA3 PO; -fentaNYL 100 MCG/2 ML INJECTION (J3010) As Ordered ONE
[2021-05-09 18:06] LABS: MAGNESIUM LEVEL 2.5 MG/DL (1.8-2.4); PERCENT SATURATION 15.5 % (19.7-50.0)
== END ==
LOC: M LAB REF 17:10
PROVIDERS: ATTEND Internal Medicine Nephrology
DX: D50.9 Iron deficiency anemia, unspecified (principal); N18.4 Chronic kidney disease, stage 4 (severe); E83.42 Hypomagnesemia

== ENCOUNTER → 2021-06-06 | Outpatient (REF) | payer MEDICARE | LOC: M LAB REF 17:03 | PROVIDERS: ATTEND Internal Medicine Nephrology | DX: E83.42 Hypomagnesemia (principal) ==

== ENCOUNTER → 2021-11-04 | Outpatient (REF) | payer MEDICARE ==
[~2021-11-04] MED LIST changes: -MAGN400T3 PO; +MAGN400T33 PO
[2021-11-04 17:55] LABS: PERCENT SATURATION 14.3 % (19.7-50.0)
== END ==
LOC: M LAB REF 16:53
PROVIDERS: ATTEND Internal Medicine Nephrology
DX: D50.9 Iron deficiency anemia, unspecified (principal)

== ENCOUNTER 2021-12-06 12:09 | Inpatient (IN) | payer MEDICARE ==
[~2021-12-06] VITALS: Ht 193 cm; Wt 113.1 kg
[2021-12-06 13:14] LABS: BASO % 0.3 % (0.0-1.0); EOS # 0.1 10^3/uL (0.0-0.5); HEMATOCRIT 27.1 % (42.0-52.0); HEMOGLOBIN 8.6 g/dl (13.5-17.5); LYMPH # 0.6 10^3/uL (1.5-5.0); LYMPH % 4.7 % (24.0-44.0); MEAN CORPUSCULAR HEMOGLOBIN 28.8 pg (27.0-33.0); MEAN CORPUSCULAR HGB CONC 31.7 g/dl (32.0-36.5); MEAN CORPUSCULAR VOLUME 90.6 fl (80.0-96.0); MONO # 1.1 10^3/uL (0.0-0.8); MONO % 9.4 % (2.0-8.0); NEUTROPHILS # 9.8 10^3/uL (1.5-8.5); NEUTROPHILS % 84.3 % (36.0-66.0); PLATELET COUNT, AUTOMATED 182 10^3/uL (150-450); RED BLOOD COUNT 2.99 10^6/uL (4.30-6.10); WHITE BLOOD COUNT 11.7 10^3/uL (4.0-10.0)
[2021-12-06 13:34] LABS: CK-MB VALUE MASS 3.5 NG/ML (<3.6); MB/CK RELATIVE INDEX 3.72 (< OR =4)
[2021-12-06 14:02] LABS: ALBUMIN 3.7 GM/DL (3.2-5.2); BILIRUBIN,DIRECT 0.5 MG/DL (0.0-0.2); CALCIUM LEVEL 9.6 MG/DL (8.8-10.2); CREATININE FOR GFR 3.89 MG/DL (0.70-1.30); GLOMERULAR FILTRATION RATE 16.5 (>49); POTASSIUM SERUM 3.5 MEQ/L (3.5-5.1); THYROID STIMULATING HORMONE 2.6 uIU/ML (0.358-3.740); TOTAL PROTEIN 6.8 GM/DL (6.4-8.2)
[2021-12-06 14:58] LABS: CK-MB VALUE MASS 3.4 NG/ML (<3.6); MB/CK RELATIVE INDEX 3.7 (< OR =4)
[2021-12-06] MEDS ORDERED: FAMO20TA5 PO (15:58)
[2021-12-06] MEDS ORDERED: LASI40TA9 PO (15:58)
[2021-12-06] MEDS ORDERED: ASPI81CH33 PO (15:58)
[2021-12-06] MEDS ORDERED: CALC1CAP31 PO (15:58)
[2021-12-06] MEDS ORDERED: LABE100T5 PO (15:58)
[2021-12-06] MEDS ORDERED: HOME MED LIST COMPLETE! XX SCH (16:55)
[2021-12-06] MEDS ORDERED: GLUCOSE 4GM CHEW TABLET PO PRN (17:00)
[2021-12-06] MEDS ORDERED: GLUCAGON INJ 1MG VIAL SC PRN (17:00)
[2021-12-06] MEDS ORDERED: DEXTROSE 50% 50 ML SYRINGE IV PRN (17:00)
[2021-12-06] MEDS: HumaLOG INSULIN (NovoLOG) PER UNIT SC SCH ×2 (18:18→21:00)
[2021-12-06] MEDS: FUROSEMIDE 100MG/10ML VIAL (J1940) IV SCH (18:18)
[2021-12-06 20:30] VITALS: BP 144/68
[2021-12-06] MEDS: GABAPENTIN 400MG CAP PO SCH (21:13)
[2021-12-06] MEDS: **hydrALAZINE HCL** 25 MG TAB PO SCH (21:13)
[2021-12-06] MEDS: LEVEMIR (INSULIN DETEMIR) 1 UNITS/0.01ML SC SCH (21:13)
[2021-12-06] MEDS: HEPARIN SOD (PORCINE) 5000UNITS/ML 1ML VIAL/SYRINGE SC SCH (21:14)
[2021-12-06] MEDS ORDERED: HEPARIN SOD (PORCINE) 5000UNITS/ML 1ML VIAL/SYRINGE SQ SCH (22:00)
[2021-12-07] MEDS: FUROSEMIDE 100MG/10ML VIAL (J1940) IV SCH ×3 (00:48→12:11)
[2021-12-07] MEDS: LABETALOL 100MG TAB PO SCH ×3 (01:46→21:16)
[2021-12-07] MEDS: HEPARIN SOD (PORCINE) 5000UNITS/ML 1ML VIAL/SYRINGE SC SCH ×3 (05:44→21:17)
[2021-12-07 06:00] VITALS: BP 134/64
[2021-12-07 06:16] LABS: BASO % 0.4 % (0.0-1.0); EOS # 0.5 10^3/uL (0.0-0.5); HEMATOCRIT 26.6 % (42.0-52.0); HEMOGLOBIN 8.3 g/dl (13.5-17.5); LYMPH # 0.6 10^3/uL (1.5-5.0); LYMPH % 6.2 % (24.0-44.0); MEAN CORPUSCULAR HEMOGLOBIN 28.5 pg (27.0-33.0); MEAN CORPUSCULAR HGB CONC 31.2 g/dl (32.0-36.5); MEAN CORPUSCULAR VOLUME 91.4 fl (80.0-96.0); MONO # 0.9 10^3/uL (0.0-0.8); MONO % 8.8 % (2.0-8.0); NEUTROPHILS # 8.1 10^3/uL (1.5-8.5); NEUTROPHILS % 79.1 % (36.0-66.0); PLATELET COUNT, AUTOMATED 176 10^3/uL (150-450); RED BLOOD COUNT 2.91 10^6/uL (4.30-6.10); WHITE BLOOD COUNT 10.2 10^3/uL (4.0-10.0)
[2021-12-07 06:44] LABS: MAGNESIUM LEVEL 2.5 MG/DL (1.8-2.4); PHOSPHORUS LEVEL 3.7 MG/DL (2.5-4.9)
[2021-12-07 06:45] LABS: BILIRUBIN,TOTAL 1.1 MG/DL (0.2-1.0); CALCIUM LEVEL 9.1 MG/DL (8.8-10.2); CREATININE FOR GFR 3.83 MG/DL (0.70-1.30); GLOMERULAR FILTRATION RATE 16.8 (>49); POTASSIUM SERUM 3.2 MEQ/L (3.5-5.1); TOTAL PROTEIN 6.8 GM/DL (6.4-8.2)
[2021-12-07] MEDS: FAMOTIDINE 20 MG TAB PO SCH (08:44)
[2021-12-07] MEDS: ASPIRIN 81 MG CHEW TABLET PO SCH (08:44)
[2021-12-07] MEDS: HumaLOG INSULIN (NovoLOG) PER UNIT SC SCH ×4 (08:44→21:00)
[2021-12-07] MEDS: GABAPENTIN 400MG CAP PO SCH ×3 (08:45→21:17)
[2021-12-07] MEDS: amLODIPine 5 MG TAB PO SCH (08:45)
[2021-12-07] MEDS: ATORVASTATIN 20 MG TAB PO SCH (08:46)
[2021-12-07] MEDS: CLOPIDOGREL 75 MG TAB PO SCH (08:46)
[2021-12-07] MEDS: **hydrALAZINE HCL** 25 MG TAB PO SCH ×3 (08:46→21:17)
[2021-12-07 08:58] VITALS: BP 139/67
[2021-12-07] MEDS ORDERED: POTASSIUM CHLORIDE 10MEQ SR TABLET PO ONE ×2 (09:00→12:15)
[2021-12-07 14:00] VITALS: BP 136/68
[2021-12-07] MEDS: LEVEMIR (INSULIN DETEMIR) 1 UNITS/0.01ML SC SCH (21:17)
[2021-12-07 22:00] VITALS: BP 159/74
[2021-12-08] MEDS: FUROSEMIDE 100MG/10ML VIAL (J1940) IV SCH ×2 (00:10→14:22)
[2021-12-08] MEDS: HEPARIN SOD (PORCINE) 5000UNITS/ML 1ML VIAL/SYRINGE SC SCH ×3 (05:44→20:23)
[2021-12-08 06:00] VITALS: BP 150/72
[2021-12-08 06:57] LABS: HEMATOCRIT 26.8 % (42.0-52.0); HEMOGLOBIN 8.2 g/dl (13.5-17.5); MEAN CORPUSCULAR HEMOGLOBIN 28.2 pg (27.0-33.0); MEAN CORPUSCULAR HGB CONC 30.6 g/dl (32.0-36.5); MEAN CORPUSCULAR VOLUME 92.1 fl (80.0-96.0); PLATELET COUNT, AUTOMATED 200 10^3/uL (150-450); RED BLOOD COUNT 2.91 10^6/uL (4.30-6.10); WHITE BLOOD COUNT 8.6 10^3/uL (4.0-10.0)
[2021-12-08 07:18] LABS: CALCIUM LEVEL 9.5 MG/DL (8.8-10.2); CREATININE FOR GFR 3.69 MG/DL (0.70-1.30); GLOMERULAR FILTRATION RATE 17.6 (>49); MAGNESIUM LEVEL 2.5 MG/DL (1.8-2.4); PHOSPHORUS LEVEL 4.2 MG/DL (2.5-4.9); POTASSIUM SERUM 3.4 MEQ/L (3.5-5.1)
[2021-12-08] MEDS: HumaLOG INSULIN (NovoLOG) PER UNIT SC SCH ×4 (07:57→21:00)
[2021-12-08] MEDS ORDERED: POTASSIUM CHLORIDE 10MEQ SR TABLET PO ONE (08:10)
[2021-12-08] MEDS: LABETALOL 100MG TAB PO SCH ×2 (08:21→20:20)
[2021-12-08] MEDS: ASPIRIN 81 MG CHEW TABLET PO SCH (08:22)
[2021-12-08] MEDS: GABAPENTIN 400MG CAP PO SCH ×3 (08:22→20:23)
[2021-12-08] MEDS: **hydrALAZINE HCL** 25 MG TAB PO SCH ×3 (08:23→20:24)
[2021-12-08] MEDS: FAMOTIDINE 20 MG TAB PO SCH (08:25)
[2021-12-08] MEDS: CLOPIDOGREL 75 MG TAB PO SCH (08:25)
[2021-12-08] MEDS: amLODIPine 5 MG TAB PO SCH (08:25)
[2021-12-08] MEDS: ATORVASTATIN 20 MG TAB PO SCH (08:25)
[2021-12-08 14:00] VITALS: BP 142/65
[2021-12-08] MEDS: LEVEMIR (INSULIN DETEMIR) 1 UNITS/0.01ML SC SCH (20:22)
[2021-12-08 22:00] VITALS: BP_SYST 154; BP_SYST 169; BP_DIAS 72; BP_DIAS 76
[2021-12-09] MEDS: FUROSEMIDE 100MG/10ML VIAL (J1940) IV SCH ×2 (01:01→11:50)
[2021-12-09 06:00] VITALS: BP 163/81
[2021-12-09] MEDS: HEPARIN SOD (PORCINE) 5000UNITS/ML 1ML VIAL/SYRINGE SC SCH (06:23)
[2021-12-09] MEDS: HumaLOG INSULIN (NovoLOG) PER UNIT SC SCH ×2 (07:30→12:29)
[2021-12-09 08:44] LABS: CALCIUM LEVEL 9.8 MG/DL (8.8-10.2); CREATININE FOR GFR 3.6 MG/DL (0.70-1.30); GLOMERULAR FILTRATION RATE 18.1 (>49); MAGNESIUM LEVEL 2.5 MG/DL (1.8-2.4); POTASSIUM SERUM 3.3 MEQ/L (3.5-5.1)
[2021-12-09] MEDS ORDERED: POTASSIUM CHLORIDE 10MEQ SR TABLET PO ONE (10:00)
[2021-12-09] MEDS: ASPIRIN 81 MG CHEW TABLET PO SCH (10:08)
[2021-12-09] MEDS: CLOPIDOGREL 75 MG TAB PO SCH (10:09)
[2021-12-09] MEDS: **hydrALAZINE HCL** 25 MG TAB PO SCH (10:09)
[2021-12-09] MEDS: amLODIPine 5 MG TAB PO SCH (10:10)
[2021-12-09] MEDS: GABAPENTIN 400MG CAP PO SCH (10:10)
[2021-12-09] MEDS: ATORVASTATIN 20 MG TAB PO SCH (10:10)
[2021-12-09] MEDS: FAMOTIDINE 20 MG TAB PO SCH (10:10)
[2021-12-09 10:11] VITALS: BP 158/78
[2021-12-09] MEDS: LABETALOL 100MG TAB PO SCH (10:11)
== END 2021-12-09 13:30 | disposition home or self-care (01) | DRG 280 ==
LOC: M ED 12:09 → M ED INP 16:21 → ENRESERV 18:44 → M MSPAV 20:30
PROVIDERS: ADMIT Internal Medicine; ATTEND Internal Medicine
DX: I13.0 Hypertensive heart and chronic kidney disease with heart failure and stage 1 through stage 4 chronic kidney disease, or unspecified chronic kidney disease (principal); I21.A1 Myocardial infarction type 2; I50.23 Acute on chronic systolic (congestive) heart failure; N18.9 Chronic kidney disease, unspecified; D72.829 Elevated white blood cell count, unspecified; I25.10 Atherosclerotic heart disease of native coronary artery without angina pectoris; E78.5 Hyperlipidemia, unspecified; E11.22 Type 2 diabetes mellitus with diabetic chronic kidney disease; Z86.718 Personal history of other venous thrombosis and embolism; Z66 Do not resuscitate; Z79.82 Long term (current) use of aspirin; Z79.4 Long term (current) use of insulin; Z79.899 Other long term (current) drug therapy; Z88.7 Allergy status to serum and vaccine; Z95.5 Presence of coronary angioplasty implant and graft

== ENCOUNTER → 2022-01-01 | Outpatient (REF) | payer MEDICARE ==
[~2022-01-01] MED LIST changes: +ASPI81CH33 PO; +CALC1CAP31 PO; +FAMO20TA5 PO; +LABE100T5 PO; +LASI40TA9 PO
[2022-01-01 18:03] LABS: PERCENT SATURATION 8.9 % (19.7-50.0)
== END ==
LOC: M LAB REF 16:48
PROVIDERS: ATTEND Internal Medicine Nephrology
DX: D50.9 Iron deficiency anemia, unspecified (principal)

== ENCOUNTER → 2022-07-10 | Outpatient (REF) | payer MEDICARE ==
[~2022-07-10] MED LIST changes: -LABE100T5 PO; +LABE100T71 PO
[2022-07-10 18:24] LABS: PERCENT SATURATION 18.2 % (19.7-50.0)
== END ==
LOC: M LAB REF 17:01
PROVIDERS: ATTEND Internal Medicine Nephrology
DX: D50.9 Iron deficiency anemia, unspecified (principal)

== ENCOUNTER → 2023-02-12 | Outpatient (REF) | payer MEDICARE ==
[~2023-02-12] MED LIST changes: +INSU100I6 SC; -LEVE1INJ5 SC
[2023-02-12 18:35] LABS: IRON (FE) 29 UG/DL (65-175); PERCENT SATURATION 9.5 % (19.7-50.0); TOTAL IRON BINDING CAPACITY 305 UG/DL (250-425)
[2023-02-12 18:38] LABS: FERRITIN 95.3 NG/ML (10.5-307.3)
[2023-02-12 18:43] LABS: HEPATITIS B SURFACE ANTIBODY NEGATIVE (POSITIVE)
[2023-02-12 18:55] LABS: HEPATITIS B SURFACE ANTIGEN NEGATIVE (NEGATIVE)
[2023-02-12 19:16] LABS: HEPATITIS B CORE ANTIBODY IGM NEGATIVE (NEGATIVE)
== END ==
LOC: M LAB REF 17:34
PROVIDERS: ATTEND Internal Medicine Nephrology
DX: D50.9 Iron deficiency anemia, unspecified (principal); N18.6 End stage renal disease